=== PATIENT | male | born 1980 | race Caucasian/White ===

== ENCOUNTER → 2024-12-13 | Outpatient (CLI) | payer OTHER | LOC: M RAD 09:41 | PROVIDERS: ATTEND Physician Assistant | DX: J32.8 Other chronic sinusitis (principal); J34.2 Deviated nasal septum ==

== ENCOUNTER 2025-01-23 10:45 | Day surgery (SDC) | payer OTHER ==
[~2025-01-23] VITALS: Ht 177.8 cm; Wt 122.5 kg
[~2025-01-23 10:45] MED LIST: AMLO25TA PO; ASPI81CH33 PO; ATOR80TA59 PO; CETI5SOL3 PO; COLC0.6T47 PO; FLUO40CA PO; FLUT50BL IH; GABA-284 PO; HYDR-3364 PO; METH-1164 PO; METO200T15 PO; NITR0.4S14 SL; PANT40TA29 PO; ROPI0.5T33 IM; SILD25TA2 PO; TOPI-14 PO
[2025-01-23] MEDS ORDERED: LIDOCAINE 2% 100 MG/5 ML SDV (FOR ANES.) As Ordered ONE (12:06)
[2025-01-23 12:43] VITALS: TEMP 97.7
[2025-01-23 13:00] VITALS: BP 123/59; O2SAT 98
== END 2025-01-23 13:10 | disposition home or self-care (01) ==
LOC: M OPP 10:45
PROVIDERS: ATTEND Internal Medicine Gastroenterology
DX: K64.0 First degree hemorrhoids (principal); R19.7 Diarrhea, unspecified; K62.5 Hemorrhage of anus and rectum; K22.70 Barrett's esophagus without dysplasia; K44.9 Diaphragmatic hernia without obstruction or gangrene; K22.89 Other specified disease of esophagus; R13.10 Dysphagia, unspecified; R12 Heartburn; G47.30 Sleep apnea, unspecified; Z95.5 Presence of coronary angioplasty implant and graft; Z88.0 Allergy status to penicillin; Z79.82 Long term (current) use of aspirin; Z79.51 Long term (current) use of inhaled steroids; Z79.899 Other long term (current) drug therapy
CPT/HCPCS: 43239; 45380; 88305; J3010